=== PATIENT | female | born 1950 | race Caucasian/White ===

== ENCOUNTER → 2018-02-07 | Outpatient (CLI) | payer MEDICARE, OTHER | LOC: M.RAD 12:55 | DX: Z12.31 Encounter for screening mammogram for malignant neoplasm of breast (principal) ==

== ENCOUNTER → 2018-03-05 | Outpatient (CLI) | payer OTHER | LOC: M.RAD 02-17 10:45 | DX: R92.8 Other abnormal and inconclusive findings on diagnostic imaging of breast (principal) ==

== ENCOUNTER → 2019-03-03 | Outpatient (CLI) | payer OTHER ==
--- NOTE | 2019-03-03 14:28 | TEE ---
[place] [address] TRANSESOPHAGEAL ECHOCARDIOGRAM Name: SUSANWILLIAM K Room: [facility]#: [id number] Admission: 03/03/19 Attend Phys: Onofre Beck, Discharge: Date of : 52 Date of Service: 03/03/19 1428 Report #: [id number] THIS REPORT FOR: //name// APPROVED REPORT Study performed: 03/03/2019 11:03:55 EXAM: Comprehensive 2D, Doppler, and color-flow Echocardiogram Patient Location: Out-Patient Status: routine BSA: 1.73 HR: 66 bpm BP: 125/68 mmHg Rhythm: NSR Other Information Study Quality: Good Indications Calcification and a supravalvular location above the aortic valve. Echo Enhancing Agent Indication: Rule out shunt Agent(s) / Amount(s) Used: Agitated Saline 10 cc Procedure After obtaining informed consent, patient underwent transesophageal echo in the [employer]. Type of Sedation : Conscious Sedation Sedation was administered by Azalia Zurita RN. Sedation start time: 1126 Case end Time: 114 Sedation was achieved intravenously with: Versed (4) Fentanyl (100) Transesophageal probe was inserted and advanced into esophagus without difficulty by Onofre Beck MD, FACC. Echo enhancement indication: R/O Septal defect. Echo enhancement agent administered: Agitated Saline The KEVIN was performed without complications. Throughout the procedure, the blood pressure, pulse oximetry, cardiac rhythm, and rate were monitored. The patient tolerated the procedure without adverse effects. Recovery from conscious sedation was uneventful and [place] [address] TRANSESOPHAGEAL ECHOCARDIOGRAM Name: WILLIAM DAVIS Room: [facility]#: [id number] Admission: 03/03/19 Attend Phys: Onofre Beck, Discharge: Date of : 52 Date of Service: 03/03/19 1428 Report #: [id number] Left Ventricle The left ventricle is normal size. There is normal LV segmental wall motion. There is normal left ventricular wall thickness. Left ventricular systolic function is normal. LVEF is 65-70%. Right Ventricle The right ventricle is normal size. The right ventricular systolic function is normal. Atria Left atrium is mildly dilated. No thrombus is visualized in the left atrium or appendage. Interatrial septum is intact without evidence of ASD or PFO. The right atrium size is normal. Aortic Valve The aortic valve is normal in structure. No aortic regurgitation is present. There is no aortic valvular stenosis. Mitral Valve The mitral valve is normal in structure. Mild mitral regurgitation. No evidence of mitral valve stenosis. Tricuspid Valve The tricuspid valve is normal in structure. There is no tricuspid valve regurgitation noted. Pulmonic Valve The pulmonary valve is normal in structure. There is no pulmonic valvular regurgitation. Great Vessels The aortic root is normal in size. Pericardium There is no pericardial effusion. <Conclusion> The left ventricle is normal size. There is normal left ventricular wall thickness. Left ventricular systolic function is normal. LVEF is 65-70%. Interatrial septum is intact without evidence of ASD or PFO. Left atrium is mildly dilated. No thrombus is visualized in the left atrium or appendage. The aortic valve is [place] [address] TRANSESOPHAGEAL ECHOCARDIOGRAM Name: WILLIAM DAVIS Room: [facility]#: [id number] Admission: 03/03/19 Attend Phys: Onofre Beck, Discharge: Date of : 52 Date of Service: 03/03/191427 Report #: [id number] The mitral valve is normal in structure. Mild mitral regurgitation. There is a calcified ridge at the sinotubular junction above the right and left coronary cusps that is eccentric and nonocclusive. The area of calcification does not involve the valve. The valve leaflets appear normal. <ELECTRONICALLY SIGNED> By: Onofre Beck MD, [facility] 03/03/19 1428 [id number] Onofre Beck MD, FACC /INF
== END | disposition home or self-care (01) ==
LOC: M.CL 09:52
DX: I48.91 Unspecified atrial fibrillation (principal); I34.0 Nonrheumatic mitral (valve) insufficiency

== ENCOUNTER → 2019-09-09 | Outpatient (CLI) | payer OTHER | LOC: M.RAD 10:49 | PROVIDERS: ATTEND Internal Medicine | DX: Z12.31 Encounter for screening mammogram for malignant neoplasm of breast (principal) ==

== ENCOUNTER → 2020-11-21 | Outpatient (CLI) | payer OTHER | LOC: M.RAD 11-01 14:00 | PROVIDERS: ATTEND Internal Medicine | DX: Z12.31 Encounter for screening mammogram for malignant neoplasm of breast (principal) ==